=== PATIENT | female | born 1960 ===

== ENCOUNTER 2022-03-10 20:16 | Emergency (ER) | payer OTHER ==
[2022-03-10] MEDS ORDERED: diphenhydrAMINE 50 MG/ML SDV IVPUSH ONE (20:39)
[2022-03-10] MEDS ORDERED: Lactated Ringers 1,000 ML IV ONE (20:39)
[2022-03-10] MEDS ORDERED: Prochlorperazine 10 MG/2 ML SDV IVPUSH ONE (20:40)
[2022-03-10] MEDS ORDERED: Ketorolac 30 MG/ML SDV IVPUSH ONE (20:40)
[2022-03-10] MEDS ORDERED: Labetalol 200 MG Tab PO ONE (22:11)
== END 2022-03-10 22:29 | disposition home or self-care (01) ==
LOC: FB.ED 20:16
DX: G43.001 Migraine without aura, not intractable, with status migrainosus (principal); I10 Essential (primary) hypertension; Z79.82 Long term (current) use of aspirin; Z79.899 Other long term (current) drug therapy
CPT/HCPCS: 96361; 96374; 96375; 99281; 99283-25; A9270-GY; J0780; J1200; J1885; J7120